=== PATIENT | male | born 1950 | race Hispanic/Latino ===

== ENCOUNTER 2018-11-14 06:55 | Day surgery (SDC) | payer MEDICARE, BC ==
[2018-11-14 07:20] VITALS: BMI 23.7
[2018-11-14 07:59] VITALS: TEMP 98
[2018-11-14] MEDS ORDERED: Sodium Chloride 0.9% 500 ML IV ONE (08:37)
[2018-11-14] MEDS ORDERED: Propofol 10 mg/ml Inj (20 ML) ONE ×2 (08:43→08:55)
[2018-11-14 09:40] VITALS: O2SAT 99
[2018-11-14 11:00] VITALS: BP 169/86; PULSE 77; RESP 19
== END 2018-11-14 10:40 | disposition home or self-care (01) ==
LOC: C.ENDO 06:55
PROVIDERS: ATTEND Internal Medicine Gastroenterology
DX: K52.9 Noninfective gastroenteritis and colitis, unspecified (principal); D12.5 Benign neoplasm of sigmoid colon; K63.89 Other specified diseases of intestine; K64.1 Second degree hemorrhoids; E11.9 Type 2 diabetes mellitus without complications; N40.0 Benign prostatic hyperplasia without lower urinary tract symptoms
CPT/HCPCS: 45385; 82948; 88305; J2704; J7030